=== PATIENT | female | born 1960 | race Caucasian/White ===

== ENCOUNTER → 2020-04-04 16:49 | Outpatient (BNVA) | payer OTHER, SELFPAY | PROVIDERS: Visit Provider Nurse Practitioner Family | DX: M79.604 Pain in right leg (principal) | CPT/HCPCS: 73590 ==

== ENCOUNTER → 2020-08-01 09:18 | Outpatient (BNVA) | payer OTHER, SELFPAY | PROVIDERS: Visit Provider Nurse Practitioner Family | DX: E55.9 Vitamin D deficiency, unspecified (principal); I10 Essential (primary) hypertension; Z13.6 Encounter for screening for cardiovascular disorders; Z79.899 Other long term (current) drug therapy | CPT/HCPCS: 80053; 80061; 81003; 82306; 83036; 84443; 85025 ==

== ENCOUNTER → 2020-08-15 09:33 | Outpatient (BNVA) | payer OTHER, SELFPAY | PROVIDERS: Family Provider Nurse Practitioner Family; Visit Provider Nurse Practitioner Family | DX: R31.9 Hematuria, unspecified (principal) | CPT/HCPCS: 81003 ==

== ENCOUNTER → 2021-10-24 16:55 | Outpatient (BNVA) | payer OTHER, SELFPAY | PROVIDERS: Family Provider Nurse Practitioner Family; PCP Nurse Practitioner Family; Visit Provider Nurse Practitioner Family | DX: M25.511 Pain in right shoulder (principal); M19.011 Primary osteoarthritis, right shoulder; R10.9 Unspecified abdominal pain; I10 Essential (primary) hypertension; Z13.6 Encounter for screening for cardiovascular disorders; E55.9 Vitamin D deficiency, unspecified | CPT/HCPCS: 73030; 74018; 80053; 80061; 81003; 82306; 83036; 84443; 85025 ==

== ENCOUNTER → 2022-01-15 10:50 | Outpatient (BNVA) | payer OTHER, SELFPAY | PROVIDERS: Family Provider Nurse Practitioner Family; PCP Nurse Practitioner Family; Visit Provider Nurse Practitioner Family | DX: R39.9 Unspecified symptoms and signs involving the genitourinary system (principal) | CPT/HCPCS: 81003 ==

== ENCOUNTER → 2022-07-30 09:25 | Outpatient (BNVA) | payer OTHER, SELFPAY | PROVIDERS: Family Provider Nurse Practitioner Family; PCP Nurse Practitioner; Visit Provider Nurse Practitioner | DX: I10 Essential (primary) hypertension (principal); Z79.899 Other long term (current) drug therapy; Z13.6 Encounter for screening for cardiovascular disorders | CPT/HCPCS: 80053; 80061; 83036; 84443; 85025 ==

== ENCOUNTER → 2022-09-18 15:42 | Outpatient (BNVA) | payer OTHER, SELFPAY | PROVIDERS: Family Provider Nurse Practitioner Family; PCP Nurse Practitioner; Visit Provider Nurse Practitioner | DX: E03.9 Hypothyroidism, unspecified (principal) | CPT/HCPCS: 84443 ==

== ENCOUNTER 2022-11-18 13:51 | Outpatient (CLI) | payer OTHER, SELFPAY | END 2022-11-18 13:52 | disposition home or self-care (01) | PROVIDERS: PCP Nurse Practitioner; Visit Provider Nurse Practitioner | DX: R05.3 Chronic cough (principal) | CPT/HCPCS: 94060; 94726; 94729; J7613 ==

== ENCOUNTER → 2023-01-29 15:10 | Outpatient (BNVA) | payer OTHER, SELFPAY | PROVIDERS: PCP Nurse Practitioner; Visit Provider Nurse Practitioner | DX: R30.0 Dysuria (principal); M19.90 Unspecified osteoarthritis, unspecified site; N39.0 Urinary tract infection, site not specified | CPT/HCPCS: 81000 ==

== ENCOUNTER → 2023-06-08 15:53 | Outpatient (BNVA) | payer OTHER, SELFPAY | PROVIDERS: PCP Nurse Practitioner; Visit Provider Nurse Practitioner | DX: R30.0 Dysuria (principal); N39.0 Urinary tract infection, site not specified | CPT/HCPCS: 81000; 87077; 87086; 87184 ==

== ENCOUNTER → 2024-04-07 15:43 | Outpatient (BNVA) | payer OTHER, SELFPAY | PROVIDERS: PCP Nurse Practitioner; Visit Provider Nurse Practitioner Family | DX: M16.11 Unilateral primary osteoarthritis, right hip | CPT/HCPCS: 73502 ==

== ENCOUNTER 2024-05-11 15:14 | Outpatient (CLI) | payer OTHER, SELFPAY ==
--- NOTE | 2024-05-11 14:20 | MM_ITS ---
WS: [id number] BILATERAL 3D TOMOSYNTHESIS DIGITAL SCREENING MAMMOGRAPHY WITH CAD CLINICAL INFORMATION: Z12.31 - Encounter for screening mammogram for malignant ... HISTORY: Screening mammogram. No current complaints. COMPARISON: New baseline TECHNIQUE: Bilateral CC and MLO views. FINDINGS: Scattered fibroglandular densities bilaterally. No suspicious focal mass, asymmetry, calcifications, or architectural distortion. No evidence of malignancy. Incidental punctate calcifications. MM/[place] [id number] IMPRESSION: BI-RADS: 2-Benign FOLLOW UP: 1 Year Follow-up Recommend return to annual screening mammography.
== END 2024-05-11 15:15 | disposition home or self-care (01) ==
LOC: MOBLMAM 15:20
PROVIDERS: PCP Nurse Practitioner Family; Visit Provider Nurse Practitioner Family
DX: Z12.31 Encounter for screening mammogram for malignant neoplasm of breast (principal); R92.323 Mammographic fibroglandular density, bilateral breasts; R92.1 Mammographic calcification found on diagnostic imaging of breast
CPT/HCPCS: 77063; 77067

== ENCOUNTER 2025-01-16 08:42 | Observation (INO) | payer OTHER, SELFPAY ==
[2025-01-16] VITALS (12 sets, daily range): BP systolic 108–146; BP diastolic 65–116; PULSE 52–112; RESP 18–20; TEMP 37.3–37.5; O2SAT 89–93; BMI 36.6; BMI 38.0
--- NOTE | 2025-01-16 08:47 | ECG_ITS ---
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
--- NOTE | 2025-01-16 09:02 | XRR_ITS ---
PROCEDURE INFORMATION: Exam: XR Chest Exam date and time: 01/16/2025 9:15 AM Age: 64 years old Clinical indication: Cough and shortness of breath; Feeling sob/cough x2 months; Additional info: Dyspnea/cough TECHNIQUE: Imaging protocol: Radiologic exam of the chest. Views: 1 view. COMPARISON: CR XR KUB [id number] 10/24/2021 5:05 PM FINDINGS: Lungs: Mild interstitial prominence. Pleural spaces: Unremarkable. No pleural effusion. No pneumothorax. Heart/Mediastinum: Unremarkable. No cardiomegaly. Vasculature: Moderate uncoiling of the thoracic aorta. Bones/joints: Unremarkable. XR/XR chest 1V portable [id number] IMPRESSION: Mild interstitial prominence.
[2025-01-16 09:10] LABS: Basophils % 0.3 %; Hematocrit 48.6 % (36-47); Lymphocytes # 0.9 10^3/uL (0.8-4.8); Lymphocytes % 8.4 %; Mean Corpuscular HGB Conc 32.1 g/dL (30-55); Mean Corpuscular Hemoglobin 29.1 pg (27-33); Mean Corpuscular Volume 90.5 fl (85-98); Mean Platelet Volume 10.3 fL (7.4-10.4); Monocytes # 1.5 10^3/uL (0.2-0.9); Monocytes % 13.7 %; Neutrophils # 8.59 10^3/uL (1.8-7.7); Neutrophils % 77.1 %; Nucleated Red Blood Cells % 0 %; Platelet Count 228 10^3/cmm (157-399); Red Blood Count 5.37 10^6/uL (3.85-5.65); White Blood Count 11.15 10^3/uL (3.29-11.43)
[2025-01-16 09:14] LABS: ABG PCO2 31.8 mmHg (35-45); ABG PH Result 7.48 (7.35-7.45); Alveolar-Arterial Oxygen Gradi 6.1 mmHg (5-10); Arterial Blood Gas Hematocrit 47.8 % (37-47); Blood Gas Allen Test Pos; Blood Gas Operator Identificat CAK; Blood Gas Sample Site Radial, left; Blood Gas Sample Type Arterial; Carboxyhemoglobin 1.5 %THgb (0.4-20.1); HCO3 ABG 23.6 mmol/L (22-26); HGB O2 Sat 92.3 % (95-100); Ionized Calcium Level - ABG 1.1 mmol/L (1.1-1.4); Oxygen Device ROOM AIR; Oxygen Saturation ABG 94.7; PO2 ABG 62.4 mmHg (80.0-100.0); PO2 FiO2 Ratio Arterial Blood 297; Potassium Level - ABG 3.6 mmol/L (3.5-5.0); Total Hemoglobin 15.6 g/dL (12-16)
[2025-01-16] MEDS: ipratropium-albuterol 3 mL Neb INHALATION (09:31)
[2025-01-16 09:33] LABS: Alanine Aminotransferase 18 U/L (0-33); Albumin Level 4.3 g/dL (3.5-5.2); Alkaline Phosphatase 75 U/L (35-105); Aspartate Amino Transferase 23 U/L (0-32); Blood Urea Nitrogen 17 mg/dL (8-23); Calcium 8.9 mg/dL (8.5-10.5); Carbon Dioxide 23 mmol/L (22-29); Chloride 96 mmol/L (98-107); Creatinine Clr Calc Pharmacy 67.0127; Globulin 2.8 g/dL (1.3-4.6); Glomerular Filtration Rate 63.2 mL/min (90-130); Glucose 122 mg/dL (65-115); Osmolality Calculated 279 mOsm/kg (285-295); Sodium 133 mmol/L (136-145); Total Bilirubin 0.3 mg/dL (0.15-1.2); Total Protein 7.1 g/dL (6.6-8.7)
[2025-01-16 09:36] LABS: Troponin(5th) Baseline 11 ng/L (0-10)
--- NOTE | 2025-01-16 09:45 | ED_ITS ---
HPI - SOB/Dyspnea 2 General: Chief Complaint: Shortness of Breath/Dyspnea Stated Complaint: cough,sob,weak Time Seen by Provider: 01/16/25 08:47 History of Present Illness: HPI Narrative: 64-year-old female presents emergency ro om complaining of feeling short of breath with a cough for the last 2 months. Patient had nonproductive cough and occasionally she will have some chest pain she usually associates it with cough. She had been seen by her doctor 2 weeks ago treated with steroids and antibiotics despite this she continues to have symptoms. Patient has a history of COPD as well as hypertension. She is not known to be diabetic. She does smoke states she has not smoked in the last 2 days. She has no known history of coronary artery disease. Associated symptoms: Reports chest pain (Associated with cough and deep breath); Deny abdominal pain or fever(s) Related Data Home Medications ?Medication ?Instructions ?Recorded ?Confirmed aspirin 81 mg tablet,delayed 81 mg PO BID 09/08/2409/02 release acetaminophen 325 mg tablet 650 mg PO QID PRN Fever Or Pain 01/16/25 01/16/25 (Tylenol) Previous Rx's ?Medication ?Instructions ?Recorded amlodipine 5 mg tablet See Rx Instructions .Route 0 12/05/24 .COMPLEX #30 tabs lisinopril 20 mg tablet See Rx Instructions .Route 0 12/05/24 .COMPLEX #30 tabs fluoxetine 20 mg capsule See Rx Instructions .Route 0 12/20/24 .COMPLEX #30 caps budesonide-formoterol HFA 160 2 inh inhalation BID 30 days #10.2 01/05/25 mcg-4.5 mcg/actuation aerosol grams inhaler (Symbicort) doxycycline hyclate 100 mg tablet 100 mg PO BID 10 day s #20 tabs 01/05/25 celecoxib 200 mg capsule See Rx Instructions .Route 0 01/13/25 .COMPLEX #60 caps albuterol sulfate 90 mcg/actuation 2 inh inhalation Q4 H PRN shortness 01/16/25 aerosol inhaler of breath or wheezing #18 gr ams oseltamivir 75 mg capsule (Tamiflu) 75 mg PO BID 5 day s #10 caps 01/16/25 Allergies Allergy/AdvReac Type Severity Reaction Status Date / Time hydroxyzine AdvReac ADR-Muscle Verified 01/05/25 16:07 Pain Review of Systems 2 Const: Denies: fever(s) or chills Card: Reports: chest pain (Associated with cough and deep breath) Resp: Denies: dyspnea GI: Denies: abdominal pain : Denies: dysuria, urinary frequency or urinary urgency Musc: Denies: neck pain or back pain Skin/Breast: Denies: rash PFSH ED 2 PFSH: Medical History (Updated 01/16/25 @ 12:48 by Corina Holcomb MD) History of PFTs 12/01 nonspecific restriction, no significant bronchdilator response, nl lung volumes and nl diffusion capacity History of Holter monitoring 06/2024 Supraventricular ectopy COPD (chronic obstructive pulmonary disease) Degenerative joint disease of right hip Palpitations Anxiety Upper respiratory infection Insomnia Arthritis Vitamin D deficiency Bronchitis after surgery Tobacco dependence Essential hypertension Social History Smoking and tobacco/nicotine status: current every day tobacco/nicotine user Quit status (tobacco/nicotine): has tried quititng Second hand smoke exposure: No Alcohol intake: never Current occupation: works fulltime at local [email or web address] Physical Exam 2 Const: GENERAL APPEARANCE: cooperative; not comfortable ORIENTATION/CONSCIOUSNESS: Yes awake, Yes oriented to person, Yes oriented to place and Yes oriented to time HENMT: COMMON NORMALS: normocephalic, atraumatic and hearing grossly normal bilaterally HEAD & SCALP: normocephalic and atraumatic Resp: COMMON NORMALS: normal respiratory effort, No retractions, No use of accessory muscles and clear to auscultation bilaterally AUSCULTATION: clear to auscultation bilaterally Cardio: COMMON NORMALS: regular rate, regular rhythm and No murmurs present (Cardio) RATE: regular rate RHYTHM: regular rhythm GI: COMMON NORMALS: Soft to palpation and No hepatosplenomegaly present A USCULTATION: Yes normoactive bowel sounds PALPATION: Yes Soft to palpation, No Tenderness to palpation present (GI), No Guarding due to palpation present (GI) and Yes No hepatosplenomegaly present Extremity: COMMON NORMALS: normal to inspection, capillary refill normal, no clubbing, cyanosis or edema, no calf tenderness and no pedal edema Neuro: SENSORIUM/ORIENTATION: Yes oriented to person, Yes oriented to place and Yes oriented to time Skin: COMMON NORMALS: no rashes or lesions noted GENERAL SKIN EXAM: no rashes or lesions noted Course 2 Vital Signs: Vital signs: Vital Signs Temperature 99.5 F 01/16/25 08:46 Pulse Rate 112 H 01/16/25 11:55 Respiratory Rate 20 H 01/16/25 11:55 Blood Pressure 130/87 01/16/25 11:55 Pulse Oximetry 89 L 01/16/25 11:55 Oxygen Delivery Me thod Room Air 01/16/25 11:55 MDM - SOB/Dyspnea Medical Decision Making While waiting on lab work to complete patient had a nonsustained run of V. tach was about 16-[address] Burkett is on-call for cardiology. He recommended trending tropes if they do not trend positive he feels she can be evaluated further as an outpatient with an outpatient 72-hour Holter monitor Lexiscan sestamibi stress test and follow-up with cardiology. Second Trope came back negative we are about to discharge the patient but went to evaluate her oxygen sats were dipping to 86 to 88% while she was awake. She has received nebulizers. She has not had any further chest pain or palpitations we have not noted any further arrhythmias. Will place on observation aggressive pulmonary toilet. Patient is having exacerbation of COPD with hypoxia largely secondary to her influenza A. Continue to monitor heart rhythm. Workup for the nonsustained V. tach can be deferred to outpatient per cardiology Medical Records I reviewed the patient's medical records. Lab Data I reviewed the patient's lab results. 01/16/25 09:00 01/16/25 09:00 Labs/Radiology: Radiology Impressions Chest X-Ray 01/16/25 09:02 IMPRESSION: Mild interstitial prominence. Laboratory Results WBC 11.15 10^3/uL (3.29-11.43) 01/16/25 09:00 RBC 5.37 10^6/uL (3.85-5.65) 01/16/25 09:00 Hgb 15.60 g/dL (11.27-16.99) 01/16/25 09:00 Hct 48.6 % (36-47) H 01/16/25 09:00 MCV 90.5 fl (85-98) 01/16/25 09:00 MCH 29.1 pg (27-33) 01/16/25 09:00 MCHC 32.1 g/dL (30-55) 01/16/25 09:00 RDW 15.0 % (12.1-15.1) 01/16/25 09:00 Plt Count 228 10^3/cmm (157-399) 01/16/25 09:00 MPV 10.3 fL (7.4-10.4) 01/16/25 09:00 Neut % (Auto) 77.1 % 01/16/25 09:00 Lymph % (Auto) 8.4 % 01/16/25 09:00 [place] % (Auto) 13.7 % 01/16/25 09:00 Eos % (Auto) 0.0 % 01/16/25 09:00 Baso % (Auto) 0.3 % 01/16/25 09:00 Neut # (Auto) 8.59 10^3/uL (1.8-7.7) H 01/16/25 09:00 Lymph # (Auto) 0.9 10^3/uL (0.8-4.8) 01/16/25 09:00 [place] # (Auto) 1.5 10^3/uL (0.2-0.9) H 01/16/25 09:00 Eos # (Auto) 0.0 10^3/uL (0.0-0.8) 01/16/25 09:00 Baso # (Auto) 0.0 10^3/uL (0.0-0.1) 01/16/25 09:00 Nucleated RBC % (auto) 0 % 01/16/25 09:00 Nucleated RBCs # 0.0 /100WBC 01/16/25 09:00 Specimen Type Arterial 01/16/25 09:02 Sample Site Radial, left 01/16/25 09:02 ABG pH 7.48 (7.35-7.45) H 01/16/25 09:02 ABG pCO2 31.8 mmHg (35-45) L 01/16/25 09:02 ABG pO2 62.4 mmHg (80.0-100.0) L 01/16/25 09:02 ABG PO2/FiO2 Ratio 297 01/16/25 09:02 ABG HCO3 23.6 mmol/L (22-26) 01/16/25 09:02 ABG O2 Saturation 94.7 01/16/25 09:02 ABG Base Excess 1.0 mmol/L (-2.0-2.0) 01/16/25 09:02 Giacomo Test Pos 01/16/25 09:02 A-a O2 Gradient 6.1 mmHg (5-10) 01/16/25 09:02 Hematocrit 47.8 % (37-47) H 01/16/25 09:02 Hgb O2 Saturation 92.3 % (95-100) L 01/16/25 09:02 Carboxyhemoglobin 1.5 %THgb (0.4-20.1) 01/16/25 09:02 Methemoglobin 1.0 % (0.4-1.5) 01/16/25 09:02 Total Hemoglobin 15.6 g/dL (12-16) 01/16/25 09:02 Sodium 136.0 mmol/L (131-143) 01/16/25 09:02 Potassium 3.6 mmol/L (3.5-5.0) 01/16/25 09:02 Glucose 101.0 mg/dL (70-115) 01/16/25 09:02 Ionized Calcium 1.1 mmol/L (1.1-1.4) 01/16/25 09:02 O2 Delivery Device Room air 01/16/25 09:02 FiO2 21.0 % 01/16/25 09:02 Director Of Marketing [employer] ID [email or web address] 01/16/25 09:02 Sodium 133 mmol/L (136-145) L 01/16/25 09:00 Potassium 4.0 mmol/L (3.5-5.1) 01/16/25 09:00 Chloride 96 mmol/L (98-107) L 01/16/25 09:00 Carbon Dioxide 23 mmol/L (22-29) 01/16/25 09:00 Anion Gap 18.0 (5-19) 01/16/25 09:00 BUN 17 mg/dL (8-23) 01/16/25 09:00 Creatinine 0.9 mg/dL (0.5-0.9) 01/16/25 09:00 GFR Calculation 63.2 mL/min (90-130) L 01/16/25 09:00 Glucose 122 mg/dL (65-115) H 01/16/25 09:00 Calculated Osmolality 279 mOsm/kg (285-295) L 01/16/25 09:00 Calcium 8.9 mg/dL (8.5-10.5) 01/16/25 09:00 Total Bilirubin 0.3 mg/dL (0.15-1.2) 01/16/25 09:00 AST 23 U/L (0-32) 01/16/25 09:00 ALT 18 U/L (0-33) 01/16/25 09:00 Alkaline Phosphatase 75 U/L (35-105) 01/16/25 09:00 Troponin T Baseline 11 ng/L (0-10) H 01/16/25 09:00 Troponin T 120 Minute 9.51 ng/L (0-10) 01/16/25 10:56 Delta Troponin T -1.49 ABS# (0-10) L 01/16/25 10:56 NT-Pro-B Natriuret Pep 370 pg/mL (0-125) H 01/16/25 09:00 Total Protein 7.1 g/dL (6.6-8.7) 01/16/25 09:00 Albumin 4.3 g/dL (3.5-5.2) 01/16/25 09:00 Globulin 2.8 g/dL (1.3-4.6) 01/16/25 09:00 Influenza A (PCR) Positive (Negative) 01/16/25 09:00 Influenza Type B (PCR) Negative (Negative) 01/16/25 09:00 RSV (PCR) Negative (Negative) 01/16/25 09:00 SARS-CoV-2 (PCR) Negative (Negative) 01/16/25 09:00 All radiology interpretation(s) finalized by discharge Discharge Plan Discharge Patient Disposition: Placed in Observation Clinical Impression: Influenza A, Arrhythmia Condition: Stable Prescriptions: New albuterol sulfate 90 mcg/actuation HFA aerosol inhaler 2 inh INHALATION Q4H PRN (Reason: shortness of breath or wheezing) Qty: 18 0RF oseltamivir [Tamiflu] 75 mg capsule 75 mg PO BID 5 Days Qty: 10 0RF No Action aspirin 81 mg tablet,delayed release (DR/EC) 81 mg PO BID budesonide-formoterol [Symbicort] 160-4.5 mcg/actuation HFA aerosol inhaler 2 inh inhalation BID 30 Days Qty: 10.2 0RF doxycycline hyclate 100 mg tablet 100 mg PO BID 10 Days Qty: 20 0RF lisinopril 20 mg tablet See Rx Instructions .ROUTE .COMPLEX Qty: 30 5RF Dose Instruction: Take 1 tablet by mouth once daily Rx Instructions: Take 1 tablet by mouth once daily amlodipine 5 mg tablet See Rx Instructions .ROUTE .COMPLEX Qty: 30 5RF Dose Instruction: Take 1 tablet by mouth once daily Rx Instructions: Take 1 tablet by mouth once daily fluoxetine 20 mg capsule See Rx Instructions .ROUTE .COMPLEX Qty: 30 2RF Dose Instruction: Take 1 capsule by mouth once daily Rx Instructions: Take 1 capsule by mouth once daily celecoxib 200 mg capsule See Rx Instructions .ROUTE .COMPLEX Qty: 60 0RF Dose Instruction: TAKE 1 CAPSULE BY MOUTH TWICE DAILY NEEDED FOR PAIN Rx Instructions: TAKE 1 CAPSULE BY MOUTH TWICE DAILY NEEDED FOR PAIN acetaminophen [Tylenol] 325 mg Tablet 650 mg PO QID PRN (Reason: Fever Or Pain) Discharge Orders: Discharge ED (Routine); Ordered 01/16/25 Ordered By: Rao Ruth Referrals: REMY Mckinnon, EARLY INTERVENTIONIST [Primary Care Provider] - Discharge Diet: Usual diet Discharge Activity: Resume usual activity Patient Instructions: Opioid Safety, Pain Management Activity Restrictions/Additional Instructions: Thank you for choosing [facility] for your healthcare needs today. It is very important that you follow up as instructed or that you return to the Emergency Department should you have concerns or if your condition changes or worsens in any way. You were seen for cough cold flu symptoms you did test positive for influenza A. You were also noted to have an irregular rhythm. We reviewed with the recreation attendant he recommends a outpatient stress test and 72-hour Holter monitor and follow-up in their office. Print Language: Lithuanian Coding Level of Care Code ED Abatement Worker for Tyree Luis
[2025-01-16 09:47] LABS: Influenza A POSITIVE (Negative); Influenza B NEGATIVE (Negative); Respiratory Syncytial Virus Ce NEGATIVE (Negative); SARS-CoV-2 PCR NEGATIVE (Negative)
[2025-01-16 11:10] LABS: NT Pro B Type Natriuretic Pept 370 pg/mL (0-125)
--- NOTE | 2025-01-16 11:10 | ECG_ITS ---
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
[2025-01-16 11:18] LABS: Troponin 5 2HR 9.51 ng/L (0-10)
[2025-01-16 11:19] LABS: Troponin 5 2HR Delta -1.49 ABS# (0-10)
--- NOTE | 2025-01-16 12:31 | P.HP_ITS ---
Providers/Chief Complaint 2 Admitting Physician: Corina Holcomb MD Primary Care Provider: ANDREW Higgins Chief Complaint: cough,sob,weak History of Present Illness Deedee Ralph is a 64 year old female who presented to the ER with shortness of breath and dyspnea associated with a cough and weakness. The cough has persisted for several months. The patient was seen by their primary care provider on January 05 and was prescribed a five-day course of 40 mg prednisone and a 10- day course of doxycycline, with no clinical improvement noted. Upon arrival at the ER today, the patient had a temperature of 99.5?F, pulse of 95, respiratory rate of 18, and oxygen saturation of 92% on room air. Initial BP was 146/116. A chest X-ray showed mild interstitial prominence. The patient received continuous nebulizer treatment, which led to tachycardia and a run of non-sustained V-tach captured on telemetry monitoring, though the patient was asymptomatic during this. The patient was found to be influenza A-positive. Despite plans to discharge with Tamiflu, the patient was found to have hypoxemia on room air with saturations of 89%. The patient has COPD and continues to smoke, though not much in the last few days. A Holter monitor from June of the previous year showed supraventricular ectopy. PFTs in 2022 showed a nonspecific restriction pattern with no significant bronchodilator response, normal lung volumes, and normal diffusion capacity. The patient reports that the medications, including antibiotics and steroids, did not really improve symptoms. THat said, she did feel good enough last thursday to go to [facility] with her fiance. She started feeling sick on Thursday with subjective fevers and worsening respiratory symptoms, weakness, aches and pains. The patient also reports diarrhea and incontinence with coughing and difficulty getting up any phleghm. The patient has not smoked in the last couple of days due to breathing difficulties. She has also not gone to work. Been in bed. She has abdominal pain with coughing and today has had dusky lips, which are not normal for her. The patient denies runny nose or sore throat. No swelling noted. Lays in left lateral position due to right hip pain which is chronic. Mrs Ralph reports using an inhaler, but indicates is does not seem to work much. She uses nasal strips and an intra- nares device at night for breathinig. The patient denies diabetes, heart attack, stroke, or kidney problems in the past. No known heart failure. The patient has a headache and reports feeling miserable presently. GIven the new need for oxygen therapy, she is being admitted for further care to observation status. Review of Systems 2 General: Reports: Other (ROS as per HPI or as otherwise noted here) Const: Reports: fever(s) (subjective x 2 days), chills, body aches, change in appetite (decreased and limited intake last 24-28 hrs), fatigue, malaise, daytime sleepiness and snoring ENMT: Denies: throat pain or nasal congestion Card: Reports: palpitations, irregular heart rhythm, lightheadedness, dyspnea on exertion and orthopnea; Denies: chest pain, edema or syncope Resp: Reports: dyspnea, productive cough, non-productive cough and chest congestion (difficult to get up); Denies: hemoptysis GI: Reports: diarrhea and fecal incontinence (with coughing spells); Denies: constipation or hematochezia : Reports: urinary incontinence (with coughing); Denies: hematuria Musc: Reports: extremity pain (right hip chronic, better with celebrex) and muscle weakness Skin/Breast: Denies: rash or sores Neuro: Reports: other (generalized rather than focal weakness); Denies: frequent falls or confusion Darryl/Lymph: Denies: easy bruising or easy bleeding Medications/Allergies Home Medications ?Medication ?Instructions ?Recorded ?Confirmed ?Last Taken ?Type aspirin 81 mg tablet,delayed 81 mg PO BID 09/08/2409/0201/14/25 History release amlodipine 5 mg tablet See Rx Instructions .Route 0 12/05/24 01/16/25 01/14/25 Rx .COMPLEX #30 tabs lisinopril 20 mg tablet See Rx Instructions .Route 0 12/05/24 01/16/25 01/14/25 Rx .COMPLEX #30 tabs fluoxetine 20 mg capsule See Rx Instructions .Route 0 12/20/24 01/16/25 11/28/24 Rx .COMPLEX #30 caps budesonide-formoterol HFA 160 2 inh inhalation BID 30 days #10.2 01/05/25 01/16/25 01/14/25 Rx mcg-4.5 mcg/actuation aerosol grams inhaler (Symbicort) doxycycline hyclate 100 mg tablet 100 mg PO BID 10 day s #20 tabs 01/05/25 01/16/25 01/14/25 Rx celecoxib 200 mg capsule See Rx Instructions .Route 0 01/13/25 01/16/25 01/14/25 Rx .COMPLEX #60 caps acetaminophen 325 mg tablet 650 mg PO QID PRN Fever Or Pain 01/16/25 01/16/25 01/15/25 20:00 History (Tylenol) albuterol sulfate 90 mcg/actuation 2 inh inhalation Q4 H PRN shortness 01/16/25 Unknown Rx aerosol inhaler of breath or wheezing #18 gr ams oseltamivir 75 mg capsule (Tamiflu) 75 mg PO BID 5 day s #10 caps 01/16/25 Unknown Rx Allergies Allergy/AdvReac Type Severity Reaction Status Date / Time hydroxyzine AdvReac ADR-Muscle Verified 01/05/25 16:07 Pain Additional Medication Information Tamiflu was in the ER prescription that has not yet been filled PFSH Acute 2 PFSH: Medical History (Updated 01/16/25 @ 16:16 by Corina Holcomb MD) Depression History of PFTs 12/01 nonspecific restriction, no significant bronchdilator response, nl lung volumes and nl diffusion capacity History of Holter monitoring 06/2024 Supraventricular ectopy COPD (chronic obstructive pulmonary disease) Degenerative joint disease of right hip Palpitations supraventricular ectopy noted on holter monitor 07/02 Anxiety Insomnia Arthritis Vitamin D deficiency Bronchitis after surgery Tobacco dependence Essential hypertension Surgical History (Updated 01/16/25 @ 14:30 by Corina Holcomb MD) History of total abdominal hysterectomy and bilateral salpingo-oophorectomy Family History (Updated 01/16/25 @ 16:57 by Corina Holcomb MD) Denies family history of CAD (coronary artery disease) Social History (Updated 01/16/25 @ 16:56 by Corina Holcomb MD) Smoking and tobacco/nicotine status: current every day tobacco/nicotine user Quit status (tobacco/nicotine): has tried quititng Second hand smoke exposure: No Alcohol intake: never Substance/Drug Use: never Additional social history: Engaged Current occupation: works fulltime at local [employer] Vitals/I&O/Wt Last Vital Signs Temp 99.5 F 01/16/25 08:46 Pulse 112 H 01/16/25 11:55 Resp 20 H 01/16/25 11:55 BP 130/87 01/16/25 11:55 Pulse Ox 89 L 01/16/25 11:55 O2 Del Method Room Air 01/16/25 11:55 Weight last 48 hrs Weight 90.718 kg Physical Exam 2 Narrative: Patient is asleep upon arrival but easily awakens. Able to provide history. Normocephalic. Extraocular movements are intact. Conjunctiva are pink. No photophobia. Nasopharynx with device in place to keep nares open along with oxygen by nasal cannula dry nasal mucosa. Oral mucosa also dry. Neck is supple. Lungs are remarkable for some inspiratory expiratory wheezes throughout. No rhonchi are noted. Pursed lip breathing noted with movement as well as retractions but both improve with rest in left lateral position. Cardiovascular exam reveals a tachycardic but regular rhythm. 2+ radial and 1+ dorsalis pedis pulses bilaterally. Abdomen is soft, positive bowel sounds. No pitting edema in pretibial region bilaterally. Left lower extremity is significantly tender to palpation along the anterior dominguez. No significant calf tenderness. Right lower extremity tender to a lesser degree along the anterior dominguez. Moves all extremities but currently preferring to lie on left side. Data 01/16/25 09:00 01/16/25 09:00 Other Labs: Radiology Impressions Chest X-Ray 01/16/25 09:02 IMPRESSION: Mild interstitial prominence. Laboratory Results WBC 11.15 10^3/uL (3.29-11.43) 01/16/25 09:00 RBC 5.37 10^6/uL (3.85-5.65) 01/16/25 09:00 Hgb 15.60 g/dL (11.27-16.99) 01/16/25 09:00 Hct 48.6 % (36-47) H 01/16/25 09:00 MCV 90.5 fl (85-98) 01/16/25 09:00 MCH 29.1 pg (27-33) 01/16/25 09:00 MCHC 32.1 g/dL (30-55) 01/16/25 09:00 RDW 15.0 % (12.1-15.1) 01/16/25 09:00 Plt Count 228 10^3/cmm (157-399) 01/16/25 09:00 MPV 10.3 fL (7.4-10.4) 01/16/25 09:00 Neut % (Auto) 77.1 % 01/16/25 09:00 Lymph % (Auto) 8.4 % 01/16/25 09:00 [place] % (Auto) 13.7 % 01/16/25 09:00 Eos % (Auto) 0.0 % 01/16/25 09:00 Baso % (Auto) 0.3 % 01/16/25 09:00 Neut # (Auto) 8.59 10^3/uL (1.8-7.7) H 01/16/25 09:00 Lymph # (Auto) 0.9 10^3/uL (0.8-4.8) 01/16/25 09:00 [place] # (Auto) 1.5 10^3/uL (0.2-0.9) H 01/16/25 09:00 Eos # (Auto) 0.0 10^3/uL (0.0-0.8) 01/16/25 09:00 Baso # (Auto) 0.0 10^3/uL (0.0-0.1) 01/16/25 09:00 Nucleated RBC % (auto) 0 % 01/16/25 09:00 Nucleated RBCs # 0.0 /100WBC 01/16/25 09:00 Specimen Type Arterial 01/16/25 09:02 Sample Site Radial, left 01/16/25 09:02 ABG pH 7.48 (7.35-7.45) H 01/16/25 09:02 ABG pCO2 31.8 mmHg (35-45) L 01/16/25 09:02 ABG pO2 62.4 mmHg (80.0-100.0) L 01/16/25 09:02 ABG PO2/FiO2 Ratio 297 01/16/25 09:02 ABG HCO3 23.6 mmol/L (22-26) 01/16/25 09:02 ABG O2 Saturation 94.7 01/16/25 09:02 ABG Base Excess 1.0 mmol/L (-2.0-2.0) 01/16/25 09:02 Giacomo Test Pos 01/16/25 09:02 A-a O2 Gradient 6.1 mmHg (5-10) 01/16/25 09:02 Hematocrit 47.8 % (37-47) H 01/16/25 09:02 Hgb O2 Saturation 92.3 % (95-100) L 01/16/25 09:02 Carboxyhemoglobin 1.5 %THgb (0.4-20.1) 01/16/25 09:02 Methemoglobin 1.0 % (0.4-1.5) 01/16/25 09:02 Total Hemoglobin 15.6 g/dL (12-16) 01/16/25 09:02 Sodium 136.0 mmol/L (131-143) 01/16/25 09:02 Potassium 3.6 mmol/L (3.5-5.0) 01/16/25 09:02 Glucose 101.0 mg/dL (70-115) 01/16/25 09:02 Ionized Calcium 1.1 mmol/L (1.1-1.4) 01/16/25 09:02 O2 Delivery Device Room air 01/16/25 09:02 FiO2 21.0 % 01/16/25 09:02 End Finder Twisting Department ID Cak 01/16/25 09:02 Sodium 133 mmol/L (136-145) L 01/16/25 09:00 Potassium 4.0 mmol/L (3.5-5.1) 01/16/25 09:00 Chloride 96 mmol/L (98-107) L 01/16/25 09:00 Carbon Dioxide 23 mmol/L (22-29) 01/16/25 09:00 Anion Gap 18.0 (5-19) 01/16/25 09:00 BUN 17 mg/dL (8-23) 01/16/25 09:00 Creatinine 0.9 mg/dL (0.5-0.9) 01/16/25 09:00 GFR Calculation 63.2 mL/min (90-130) L 01/16/25 09:00 Glucose 122 mg/dL (65-115) H 01/16/25 09:00 Calculated Osmolality 279 mOsm/kg (285-295) L 01/16/25 09:00 Calcium 8.9 mg/dL (8.5-10.5) 01/16/25 09:00 Total Bilirubin 0.3 mg/dL (0.15-1.2) 01/16/25 09:00 AST 23 U/L (0-32) 01/16/25 09:00 ALT 18 U/L (0-33) 01/16/25 09:00 Alkaline Phosphatase 75 U/L (35-105) 01/16/25 09:00 Troponin T Baseline 11 ng/L (0-10) H 01/16/25 09:00 Troponin T 120 Minute 9.51 ng/L (0-10) 01/16/25 10:56 Delta Troponin T -1.49 ABS# (0-10) L 01/16/25 10:56 NT-Pro-B Natriuret Pep 370 pg/mL (0-125) H 01/16/25 09:00 Total Protein 7.1 g/dL (6.6-8.7) 01/16/25 09:00 Albumin 4.3 g/dL (3.5-5.2) 01/16/25 09:00 Globulin 2.8 g/dL (1.3-4.6) 01/16/25 09:00 Influenza A (PCR) Positive (Negative) 01/16/25 09:00 Influenza Type B (PCR) Negative (Negative) 01/16/25 09:00 RSV (PCR) Negative (Negative) 01/16/25 09:00 SARS-CoV-2 (PCR) Negative (Negative) 01/16/25 09:00 Other data: 06/2024 HOLTER x 14 days Holter monitor was for 14 days dated from 0 06/15/2024 to 06/29/2024 *The predominant rhythm was sinus with frequent supraventricular ectopy. *The Maximum Heart Rate recorded was 193 bpm, 06/22 15:10:19, the Minimum Heart Rate recorded was 34 bpm, 06/21 03:42:02, and the Average Heart Rate was 84 bpm. *There were 1,813 VE beats with a burden of <1 %. *There were 125,924 SVE beats with a burden of 9 %. There were 75 occurrences of Supraventricular Tachycardia with the Fastest episode 193 bpm, 06/22 15:10:16 , and the Longest episode 13 beats, 06/22 15:10:16. *There were 40 Patient Triggers All patient triggered events were consistent with sinus rhythm mostly to sinus tachycardia heart rate ranged from 74-105 beats per Electronically Signed On 08-28-2024 20:49:39 CDT by TERRI kumar [email or web address] Dictated By: Terri Pulliam MD Signed By: Terri Pulliam MD Signed Date/Time: 08/28/242050 DD/ 1604 A&P Assessment and plan (1) Hypoxemia requiring supplemental oxygen: Hypoxemia requiring supplemental oxygen is a new finding for this patient who is a known smoker with COPD/chronic bronchitis. Not currently meeting criteria for acute respiratory failure but at high risk for progression to such. She has had a degree of symptoms for a couple of months, initially a cough that would not go away. Has had difficulty with expectoration feeling like she needs to get something up. Is on piedad inhibitor but cough sounds productive rather than dry. Was seen by primary care provider end of December and given a course of steroids and doxycycline along with additional inhaler. Improved enough to feel like going to [email or web address] on Thursday but not as improved as she would have liked. Previous PFTs done in 2022 have shown limited bronchodilator response and also showed a nonspecific restrictive pattern rather than expected obstructive process. Review of previous oxygen saturations in EMR show normal values. I strongly suspect acute hypoxemia is secondary to influenza A which has been identified today on top of chronic bronchitis. Chest x-ray without evidence of pneumonia though certainly at risk for developing such. Cardiac etiology such as acute ischemia or myocarditis seem less likely based on clinically history though findings in ED a concern. Other pulmonary entities such as interstitial lung disease (restrictive pattern on PFTs but normal lung volumes) and PE (normal AA gradient) less of an acute concern at present but need to be kept in mind. Unsure at this point the role of BMI at 36 and potential undiagnosed and untreated sleep apnea may be playing into current clinical presentation at this time. ABG shows primary respiratory with metabolic compensation of a chronic process acutely worsened. No prior ABGs for comparison - Oxygen therapy, weaning to room air as tolerated - Monitor for need for non-invasive ventilation especially with sleep - Management for influenza A, supportive by nature - Management for COPD exacerbation, as noted below - Continue to trend cardiac enzymes, telemetry monitoring and other cardiac management as noted below (2) Arrhythmia: Noted to have nonsustained V. tach in the emergency room. Morphology from telemetry monitoring quite different from that which I was able to review in Holter monitor performed in June of 2024 when she was noted to have supraventricular ectopy. Looking a bit closer she did have a few episodes of ventricular ectopy with highest rate 193 and longest run of beats 13. Abnormality noted today was after receiving continuous nebulizer treatment which may be a contributing factor in addition to baseline respiratory status and degree of hypoxemia. Asymptomatic. Chronically does have intermittent palpitations which is what led to previous Holter monitoring. Baseline troponin just outside of normal range with downtrending to our troponin delta. Type II process secondary to demand ischemia from hypoxemia a consideration. - Telemetry monitoring - Check and replace electrolytes as needed - Check echocardiogram if HR below 100 - Continue to trend cardiac enzymes, check lipid panel, check TSH - May benefit from outpatient cardiovascular stress testing depending on clinical course given degree of symptoms over couple months without improvement with management for respiratory etiology of symptoms Qualifiers: Arrhythmia type: other ventricular tachycardia Qualified Code(s): I 47.29 - Other ventricular tachycardia (3) Influenza A: As noted on respiratory testing done today. Symptom onset just over 48 hours ago. Has had associated fever, headaches, body aches, general malaise along with worsening of respiratory symptoms and general weakness. Not vaccinated. - Tamiflu as in treatment window - Supportive care (4) COPD (chronic obstructive pulmonary disease): From review of available information appears to have chronic mucopurulent/simple bronchitis from long time tobacco use/smoking, currently with acute exacerbation related to influenza A. PFTs in 2022, however, showed unspecified restrictive pattern with no significant broncodilator response, normal lung volumes and normal diffusion capacity. Has not previously required oxygen as noted. - Prednisone 40 mg daily to resume - Levaquin orally - Continue long acting inhaler management - As need duonebs though given prior PFTs may not show improvement if study was reflective of current condition - Flutter device and incentive spirometry - Mucinex - Oxygen therapy as needed, may need for home use - Smoking cessation encouraged - Would benefit from repeat PFTs in the outpatient setting when clinically improved as well as consideration for high-resolution CT of the chest if remains suggestive of restrictive disease process. Could also consider high resolution CT of the chest sooner if clinically warranted. Annual CT lung screening should also be considered in consultation with PCP. Qualifiers: COPD type: COPD with acute exacerbation Qualified Code(s): J44.1 - Chronic obstructive pulmonary disease with (acute) exacerbation (5) Essential hypertension: Chronically on lisinopril and amlodipine. Blood pressures at presentation high but improved after settling. - Continue home amlodipine - Holding lisinopril currently due to renal function - Monitor blood pressure for need to adjust management - Consider diuretics depending on renal/volume status (6) Kidney disease, chronic, stage II (GFR 60-89 ml/min): By current GFR calculations. Not a known diagnosis. BUN/Cr higher than prior values. May be volume related rather than chronic disease as has not had much intake last 48 hours, including fluids. Did start celecoxib in November and is on lisinopril chronically. Has known hypertension as well. - Fluids overnight - Recheck renal function in am - Monitor volume status (7) Insomnia: Has not had sleep study but does snore and wears an [id number] device in her nares to keep them open with sleep. Undiagnosed/treated sleep apnea could be a contributing factor to longer term symptoms and potential for hypoxemia even when not acutely ill. - Monitor for indications of sleep apnea while here - Once back to baseline from acute illness, would benefit from outpatient sleep study, likely in lab given potential oxygen need, though that may clear with resolution of acute illness - Limit sleep aids given current respiratory status Qualifiers: Insomnia type: due to medical condition Qualified Code(s): G47.01 - Insomnia due to medical condition (8) Degenerative joint disease of right hip: Started on Celebrex for arthritis/right hip pain in 11/2024 and believes it is helping more than medications previously prescribed. She stopped fluoxetine for depression when this was started due to information she read about co- administration of medications. - Continue Celebrex arthritis pain but will decrease dose to 100 bid for max of 200 per day currently - Monitor for any signs of GI bleed/symptoms with steroids - Decreased aspirin dosing to once daily from bid Qualifiers: Osteoarthritis type: primary Qualified Code(s): M16.11 - Unilateral primary osteoarthritis, right hip (9) Depression: Previously on fluoxetine for depression but stopped taking it when celecoxib started for DJD of right hip/arthritis due to concerns about interactions. Off now for 6-8 weeks. - Currently feels like doing okay off of fluoxetine so will not resume - Recommend monitoring for need to pharmacologically address depression on ongoing basis in outpatient setting (10) Tobacco dependence: Typically smokes a pack per day, none last couple days due to illness - Nicotine patch if needed - Encouraged to maintain abstinence from nicotine/cigarettes - Reviewed that sometimes respiratory status worsens before it gets better but quitting now can help her breathing over the longer term (11) BMI 36.0-36.9,adult: Plan > BNP above normal range but no edema, no cxr findings of pulmonary edema; nevertheless has risk factors for heart failure including possible untreated sleep apnea, tobacco use, hypertension, COPD, possible CKD 2 - Check Echo, monitor for CHF signs and symptoms > Elevated blood sugar without a history of diabetes, recently on steroids which has been re-ordered here - Check A1c, recheck blood glucose in am > Weakness and malaise may be related to unrecognized hypoxemia in the home setting, worse with influenza A - Recommended home pulse oximeter in addition to monitoring in the hospital setting Observation admission currently Other care as noted above VTE prophylaxis: Lovenox GI Prophylaxis: PPI Antibiotics: has been on doxycycline outpatient since 01/05 or 01/06 Pending studies: 6 hr troponin, echo, a1c, tsh, lipid panel, am labs Telemetry: ordered due to episode of v tach noted in ED Romero: not currently indicated Line(s): peripheral IVs Disposition plan: Home with outpatient follow up to primary care provider anticipated. Would benefit from outpatient sleep study(in lab likely with current oxygen needs) & repeat PFTs one clinically improved from acute illness. Depending on results of telemetry monitoring, echo and serial cardiac enzymes, may also bnefit from lexiscan mibi in outpatient setting. Nay require home oxygen at discharge depending on clinical course. Code Status: Full Code Supportive care otherwise Findings, concerns and plans were discussed with patient and her fiance and they were given an opportunity to ask questions PDMP PDMP Reviewed: Last Reviewed 01/16/25 12:38 by Corina Holcomb MD Attestations 2 Medical Necessity Statement*: Currently anticipate a stay less than two midnights In this patient with known COPD who has not previously required oxygen. She is currently hypoxemic and on 2 L by nasal cannula in the setting of acute influenza A infection and COPD exacerbation. Management has been initiated and we will monitor response overnight and make further determination about ongoing hospital stay versus discharge home possibly with oxygen therapy among other management. In addition to hypoxemia she had a nonsustained run of V. tach bringing up potential concern for cardiac etiology despite the acute viral infectious process that is known.She has already been on outpatient management with oral steroids and oral antibiotic that have just completed as well. Diagnoses Hypoxemia requiring supplemental oxygen R09.02; Z99.81 Other ventricular tachycardia I47.29 Arrhythmia type: other ventricular tachycardia Influenza A J10.1 Chronic obstructive pulmonary disease with acute exacerbation J44.1 COPD type: COPD with acute exacerbation Essential hypertension I10 Kidney disease, chronic, stage II (GFR 60-89 ml/min) N18.2 Insomnia due to medical condition G47.01 Insomnia type: due to medical condition Primary osteoarthritis of right hip M16.11 Osteoarthritis type: primary Depression F32.A Tobacco dependence F17.200 BMI 36.0-36.9,adult Z68.36
[2025-01-16] MEDS: acetaminophen 325 mg Tablet 650 MG PO (12:49)
--- NOTE | 2025-01-16 14:47 | USCV_ITS ---
[facility], Deedee Age: 64 Gender: F : 1960 Exam Date: 01/16/2025 15:56 Ordering Phys: Corina Holcomb MD Technologist: Exam Location: [facility] – [place] Indication: vtach BP: 118 / 81 HR: 97 Rhythm: Sinus Technical Quality: Adequate MEASUREMENTS (Male / Female) Normal Values 2D ECHO LV Diastolic Diameter PLAX 3.9 cm 4.2 - 5.9 / 3.9 - 5.3 cm IVS Diastolic Thickness 1.2 cm 0.6 - 1.0 / 0.6 - 0.9 cm IVS Systolic Thickness 1.9 cm LVPW Diastolic Thickness 1.5 cm 0.6 - 1.0 / 0.6 - 0.9 cm LVPW Systolic Thickness 1.8 cm LVOT Diameter 2.1 cm LV Ejection Fraction 2D Teich 63.4 % LV Ejection Fraction MOD 4C 57.8 % LV Ejection Fraction MOD 2C 70.4 % LV Ejection Fraction 2C AL 72.8 % LA Diameter 4.4 cm RA Systolic Volume 4C AL 49.2 ml RA Systolic Volume 4C MOD 46.8 ml Aorta at Sinotubular Diameter 2.8 cm IVC Diameter 1.0 cm M-MODE LA Ao Ratio MM 1.4 AV Cusp Separation MM 2.5 cm DOPPLER AV Peak Velocity 139.0 cm/s LVOT Peak Velocity 108.0 cm/s AV Area Cont Eq vti 3.0 cm squared AV Area Cont Eq pk 2.6 cm squared MV Peak Velocity 133.0 cm/s MV Area PHT 4.8 cm squared Mitral E to A Ratio 0.6 TR Peak Velocity 168.0 cm/s TR Peak Gradient 11.3 mmHg TV Peak E Velocity 59.0 cm/s PV Peak Velocity 114.0 cm/s FINDINGS Left Ventricle Normal left ventricular size, systolic function and wall thickness, with no regional wall motion abnormalities. Left ventricular ejection fraction is estimated at 60 %. Grade I/IV diastolic dysfunction (abnormal relaxation filling pattern), normal to mildly elevated filling pressures. Right Ventricle The right ventricle is normal in size and function. Right Atrium The right atrium is normal in size. Left Atrium Moderately increased left atrial size. Mitral Valve Thickened mitral valve. No mitral valve stenosis. Trace mitral valve regurgitation. Aortic Valve Thickened aortic valve. No aortic valve stenosis. Mild aortic valve regurgitation. Tricuspid Valve Structurally normal tricuspid valve without significant stenosis or regurgitation. Pulmonary artery systolic pressure is normal. Pulmonic Valve Structurally normal pulmonic valve without significant stenosis. There is no pulmonic regurgitation. Pericardium Normal pericardium without effusion. Aorta Normal ascending aorta dimension. IVC The inferior vena cava appears normal. CONCLUSIONS Normal left ventricular size, systolic function and wall thickness, with no regional wall motion abnormalities. Left ventricular ejection fraction is estimated at 60 %. Grade I/IV diastolic dysfunction (abnormal relaxation filling pattern), normal to mildly elevated filling pressures. Moderately increased left atrial size. Thickened aortic valve. No aortic valve stenosis. Mild aortic valve regurgitation. There is no pericardial effusion. Right atrial pressure is around 5 mm of mercury. Gemma Pulliam MD (Electronically Signed) Final Date: 16 January 2025 22:11 S
--- NOTE | 2025-01-16 15:02 | ECG_ITS ---
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: : 1960 Requested By: Rao Rose Order Number: [id number] Reading MD: TERRI RANDOLPH Measurements Intervals [place] Rate: 98 P: 4 PA: 152 QRS: -14 QRSD: 91 T: -15 QT: 351 QTc: 449 Interpretive Statements SINUS RHYTHM WITH OCCASIONAL ECTOPIC PREMATURE COMPLEXES LEFT ATRIAL ENLARGEMENT [-0.15mV P-WAVE IN V1/V2] POSSIBLE LEFT VENTRICULAR HYPERTROPHY [VOLTAGE CRITERIA PLUS LAE OR QRS WIDENING] MINIMAL ST DEPRESSION [0.025+ mV ST DEPRESSION] Compared to ECG 01/16/2025 11:10:56 Atrial abnormality now present ST (T wave) deviation now present Sinus tachycardia no longer present Electronically Signed On 01-16-2025 22:18:32 CDT by TERRI RANDOLPH [email or web address]
[2025-01-16 15:33] LABS: Troponin 5 6HR 9.86 ng/L (0-10)
[2025-01-16 15:34] LABS: Troponin 5 6HR Delta -1.14 ng/L (0-12)
[2025-01-16] MEDS: predniSONE 20 mg Tablet 40 MG PO (16:19)
[2025-01-16] MEDS: sodium chloride 0.9% 1,000 ML 75 ML IV (16:19)
[2025-01-16] MEDS: guaiFENesin 600 mg Tablet PO (18:01)
[2025-01-16] MEDS: CELEcoxib 100 mg Capsule PO (18:01)
[2025-01-16] MEDS: oseltamivir phosphate 75 mg Capsule PO (18:01)
[2025-01-16] MEDS: enoxaparin 40 mg/0.4 mL Syringe SUBCUT (18:01)
[2025-01-17] VITALS (8 sets, daily range): BP systolic 116–145; BP diastolic 80–92; PULSE 46–96; RESP 16–18; TEMP 36.4–37.2; O2SAT 90–96
[2025-01-17 03:11] LABS: Bilirubin Urine Negative (Negative); Blood Urine 1+ (Negative); Glucose Urine UA Negative (Normal); Ketones Urine Trace (Negative); Leukocyte Esterase Urine Negative (Negative); Nitrate Urine Negative (Negative); Protein Urine Trace (Negative); Specific Gravity, Urine 1.015 (1.005-1.030); Urine Appearance Clear (CLEAR); Urine Color Yellow (Yellow); Urobilinogen Urine 0.2 mg/dL (Negative); pH Urine 5.5 (5-7)
[2025-01-17 03:16] LABS: Add Urine Microscopic? YES; Bacteria Urine None Seen /hpf; Hyaline Casts Urine 2.87 /lpf; RBC Urine 0-2 /hpf (0-2); Squamous Epithelial Cell Urine 0-5 /hpf (0-5); WBC Urine 0-5 /hpf (0-5)
[2025-01-17] MEDS: levoFLOXacin 750 mg Tablet PO (05:30)
[2025-01-17] MEDS: sodium chloride 0.9% 1,000 ML 75 ML IV (05:30)
[2025-01-17 06:09] LABS: Anion Gap 15.8 (5-19); Blood Urea Nitrogen 15 mg/dL (8-23); Calcium 8.3 mg/dL (8.5-10.5); Carbon Dioxide 24 mmol/L (22-29); Chloride 104 mmol/L (98-107); Creatinine Clr Calc Pharmacy 101.9214; Glucose 91 mg/dL (65-115); Osmolality Calculated 290 mOsm/kg (285-295); Phosphorus 3.3 mg/dL (2.5-4.5); Potassium 3.8 mmol/L (3.5-5.1); Sodium 140 mmol/L (136-145); Thyroid Stimulating Hormone 0.07 uIU/mL (0.27-4.20)
[2025-01-17 06:13] LABS: Chol HDL Ratio 4.67 mg/dL (0.0-4.40); Cholesterol 140 mg/dL (0-200); HDL Cholesterol 30 mg/dL (60-100); LDL Cholesterol Calculated 85 mg/dL (50-129); LDL HDL Ratio 2.83 RATIO (0.00-3.22); Triglycerides 125 mg/dL (0-150)
[2025-01-17 06:19] LABS: Estmated Average Glucose 114; Hemoglobin A1C 5.6 % (4.0-6.0)
[2025-01-17] MEDS: budesonide 0.5 mg/2 mL Neb INHALATION (09:04)
[2025-01-17] MEDS: albuterol 2.5 mg/3 mL Neb INHALATION (09:04)
--- NOTE | 2025-01-17 09:26 | PC.CHAP ---
Pastoral Care Encounter/Spiritual Assessment Type of Contact [] Declined junior web designer visit [] Patient/Family/Request visit [] Outpatient visit [] Follow-up visit [] Physician referral [] Code/Alert [] Routine visit [] Staff referral [] Actively dying [] Patient sleeping [] Family support [] [] Out of room [] Palliative care [] [] Receiving care in room [] Pre-surgical visit [] Trauma [] Long length of stay [] ICU visit [x] Other:Contact precautions. No visit. 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 [] Prayer [] Active listening [] Non-anxious presence [] Spiritual/emotional support [] Crisis/trauma care [] Spiritual counseling [] Bereavement support [] Provided bereavement packet [] Provided Bible/devotional materials [] Provided toy/stuffed animal, coloring book to patient or family member [] Provided Communion [] Anointing/[place] [] Salvation [] Completed spiritual assessment [] Other: Impact on Illness or Injury [] Angry [] Fearful [] Anxious [] Often cries [] Exhaustion [] Unable to work [] Unable to attend orthodoxy [] Unable to walk/stand [] Unable to read [] Unable to drive [] Unable to eat/drink [] Unable to sleep [] Unable to be with family [] Patient intubated [] Other: Summary Time spent with patient
[2025-01-17] MEDS: aspirin 81 mg EC Tablet PO (09:34)
[2025-01-17] MEDS: oseltamivir phosphate 75 mg Capsule PO (09:34)
[2025-01-17] MEDS: guaiFENesin 600 mg Tablet PO (09:34)
[2025-01-17] MEDS: pantoprazole DR 40 mg Tablet PO (09:35)
[2025-01-17] MEDS: amlodipine 5 mg Tablet PO (09:35)
[2025-01-17] MEDS: predniSONE 20 mg Tablet 40 MG PO (09:35)
[2025-01-17] MEDS: CELEcoxib 100 mg Capsule PO (09:35)
--- NOTE | 2025-01-17 11:01 | PM.DCS ---
Discharge Providers Date of Admission: 01/16/25 15:39 Date of Discharge: January 17, 2025 Attending Provider at Admission: Corina Holcomb MD Attending Provider at Discharge: Ayush Gracia MD Primary Care Provider: ANDREW Higgins Diagnoses at Discharge Discharge Diagnosis (1) Hypoxemia requiring supplemental oxygen: Status: Acute (2) Arrhythmia: Status: Acute Qualifiers: Arrhythmia type: other ventricular tachycardia Qualified Code(s): I47.29 - Other ventricular tachycardia Permanent problem details: Nonsustained V. tach noted on ED telemetry monitoring 01/31 (3) Influenza A: Status: Acute (4) COPD (chronic obstructive pulmonary disease): Status: Chronic Qualifiers: COPD type: COPD with acute exacerbation Qualified Code(s): J44.1 - Chronic obstructive pulmonary disease with (acute) exacerbation (5) Essential hypertension: Status: Chronic (6) Kidney disease, chronic, stage II (GFR 60-89 ml/min): Status: Acute (7) Insomnia: Status: Chronic Qualifiers: Insomnia type: due to medical condition Qualified Code(s): G47.01 - Insomnia due to medical condition (8) Degenerative joint disease of right hip: Status: Chronic Qualifiers: Osteoarthritis type: primary Qualified Code(s): M16.11 - Unilateral primary osteoarthritis, right hip (9) Depression: Status: Chronic (10) Tobacco dependence: Status: Chronic (11) BMI 36.0-36.9,adult: Status: Chronic Reason for Visit Reason for Visit: cough,sob,weak Hospital Course Hospital Course Deedee Ralph is a 64-year-old female with past medical history significant for depression, COPD, anxiety, insomnia, tobacco dependence, hypertension, and multiple other comorbidities who presented with shortness of breath and dyspnea associated with cough and weakness, found to have acute influenza A infection resulting in acute COPD exacerbation with acute hypoxic respiratory insufficiency requiring supplemental oxygen support. She was treated with Tamiflu, systemic steroids, breathing treatments, levofloxacin, and supportive care. She has noted to have nonsustained V. tach in the emergency department. Electrolytes were monitored. She was monitored on telemetry. Echo was obtained showing diastolic dysfunction. Her symptomatology improved. She is discharged home in stable condition. She is to continue follow-up with her outpatient providers within 1 week for ongoing care. Physical Exam Narrative: General: Patient is awake. Appears fatigued. Cough present throughout exam. Head: Normocephalic. Atraumatic. EOM intact. Neck: No JVD. Cardiovascular: RRR. No gallops. No murmurs. Lungs: Breath sounds are slightly diminished. End expiratory wheeze present. On supplemental oxygen support. No crackles. No rhonchi. No rales. Skin: No jaundice. No rashes. Abdomen: Normal bowel sounds, abdomen soft and nontender. Extremities: No cyanosis or clubbing. Musculoskeletal:No swollen or erythematous joints. Neurological: Moves all 4 extremities. No myoclonus. Discharge Data Studies Completed and Pending Completed Studies During Hospitalization Category Date Time Status XR chest 1V portable [id number] Stat Exams 01/16/25 09:02 Completed CV. echo complete* [id number] Routine Ultrasound 01/16/25 14:47 Completed Radiology Impressions Chest X-Ray 01/16/25 09:02 IMPRESSION: Mild interstitial prominence. Laboratory Results WBC 11.15 10^3/uL (3.29-11.43) 01/16/25 09:00 RBC 5.37 10^6/uL (3.85-5.65) 01/16/25 09:00 Hgb 15.60 g/dL (11.27-16.99) 01/16/25 09:00 Hct 48.6 % (36-47) H 01/16/25 09:00 MCV 90.5 fl (85-98) 01/16/25 09:00 MCH 29.1 pg (27-33) 01/16/25 09:00 MCHC 32.1 g/dL (30-55) 01/16/25 09:00 RDW 15.0 % (12.1-15.1) 01/16/25 09:00 Plt Count 228 10^3/cmm (157-399) 01/16/25 09:00 MPV 10.3 fL (7.4-10.4) 01/16/25 09:00 Neut % (Auto) 77.1 % 01/16/25 09:00 Lymph % (Auto) 8.4 % 01/16/25 09:00 Morrow % (Auto) 13.7 % 01/16/25 09:00 Eos % (Auto) 0.0 % 01/16/25 09:00 Baso % (Auto) 0.3 % 01/16/25 09:00 Neut # (Auto) 8.59 10^3/uL (1.8-7.7) H 01/16/25 09:00 Lymph # (Auto) 0.9 10^3/uL (0.8-4.8) 01/16/25 09:00 Morrow # (Auto) 1.5 10^3/uL (0.2-0.9) H 01/16/25 09:00 Eos # (Auto) 0.0 10^3/uL (0.0-0.8) 01/16/25 09:00 Baso # (Auto) 0.0 10^3/uL (0.0-0.1) 01/16/25 09:00 Nucleated RBC % (auto) 0 % 01/16/25 09:00 Nucleated RBCs # 0.0 /100WBC 01/16/25 09:00 Specimen Type Arterial 01/16/25 09:02 Sample Site Radial, left 01/16/25 09:02 ABG pH 7.48 (7.35-7.45) H 01/16/25 09:02 ABG pCO2 31.8 mmHg (35-45) L 01/16/25 09:02 ABG pO2 62.4 mmHg (80.0-100.0) L 01/16/25 09:02 ABG PO2/FiO2 Ratio 297 01/16/25 09:02 ABG HCO3 23.6 mmol/L (22-26) 01/16/25 09:02 ABG O2 Saturation 94.7 01/16/25 09:02 ABG Base Excess 1.0 mmol/L (-2.0-2.0) 01/16/25 09:02 Giacomo Test Pos 01/16/25 09:02 A-a O2 Gradient 6.1 mmHg (5-10) 01/16/25 09:02 Hematocrit 47.8 % (37-47) H 01/16/25 09:02 Hgb O2 Saturation 92.3 % (95-100) L 01/16/25 09:02 Carboxyhemoglobin 1.5 %THgb (0.4-20.1) 01/16/25 09:02 Methemoglobin 1.0 % (0.4-1.5) 01/16/25 09:02 Total Hemoglobin 15.6 g/dL (12-16) 01/16/25 09:02 Sodium 136.0 mmol/L (131-143) 01/16/25 09:02 Potassium 3.6 mmol/L (3.5-5.0) 01/16/25 09:02 Glucose 101.0 mg/dL (70-115) 01/16/25 09:02 Ionized Calcium 1.1 mmol/L (1.1-1.4) 01/16/25 09:02 O2 Delivery Device Room air 01/16/25 09:02 FiO2 21.0 % 01/16/25 09:02 Strawberry Grower ID Cak 01/16/25 09:02 Sodium 140 mmol/L (136-145) 01/17/25 04:55 Potassium 3.8 mmol/L (3.5-5.1) 01/17/25 04:55 Chloride 104 mmol/L (98-107) 01/17/25 04:55 Carbon Dioxide 24 mmol/L (22-29) 01/17/25 04:55 Anion Gap 15.8 (5-19) 01/17/25 04:55 BUN 15 mg/dL (8-23) 01/17/25 04:55 Creatinine 0.6 mg/dL (0.5-0.9) 01/17/25 04:55 GFR Calculation 101.0 mL/min (90-130) 01/17/25 04:55 Glucose 91 mg/dL (65-115) 01/17/25 04:55 Estimat Average Glucose 114 01/17/25 04:55 Hemoglobin A1c 5.6 % (4.0-6.0) 01/17/25 04:55 Calculated Osmolality 290 mOsm/kg (285-295) 01/17/25 04:55 Calcium 8.3 mg/dL (8.5-10.5) L 01/17/25 04:55 Phosphorus 3.3 mg/dL (2.5-4.5) 01/17/25 04:55 Magnesium 2.0 mg/dL (1.7-2.3) 01/17/25 04:55 Total Bilirubin 0.3 mg/dL (0.15-1.2) 01/16/25 09:00 AST 23 U/L (0-32) 01/16/25 09:00 ALT 18 U/L (0-33) 01/16/25 09:00 Alkaline Phosphatase 75 U/L (35-105) 01/16/25 09:00 Troponin T Baseline 11 ng/L (0-10) H 01/16/25 09:00 Troponin T 120 Minute 9.51 ng/L (0-10) 01/16/25 10:56 Delta Troponin T -1.49 ABS# (0-10) L 01/16/25 10:56 Troponin T Hi Sens 6Hr 9.86 ng/L (0-10) 01/16/25 15:06 Troponin T Hi Sens 6Hr Delta -1.14 ng/L (0-12) L 01/16/25 15:06 NT-Pro-B Natriuret Pep 370 pg/mL (0-125) H 01/16/25 09:00 Total Protein 7.1 g/dL (6.6-8.7) 01/16/25 09:00 Albumin 4.3 g/dL (3.5-5.2) 01/16/25 09:00 Globulin 2.8 g/dL (1.3-4.6) 01/16/25 09:00 Triglycerides 125 mg/dL (0-150) 01/17/25 04:55 Cholesterol 140 mg/dL (0-200) 01/17/25 04:55 LDL Cholesterol, Calc 85 mg/dL (50-129) 01/17/25 04:55 HDL Cholesterol 30 mg/dL (60-100) L 01/17/25 04:55 LDL/HDL Ratio 2.83 RATIO (0.00-3.22) 01/17/25 04:55 Cholesterol/HDL Ratio 4.67 mg/dL (0.0-4.40) H 01/17/25 04:55 TSH 0.07 uIU/mL (0.27-4.20) L 01/17/25 04:55 Urine Color Yellow (Yellow) 01/17/25 03:00 Urine Appearance Clear (CLEAR) 01/17/25 03:00 Urine pH 5.5 (5-7) 01/17/25 03:00 Ur Specific [place] 1.015 (1.005-1.030) 01/17/25 03:00 Urine Protein Trace (Negative) A 01/17/25 03:00 Urine Glucose (UA) Negative (Normal) 01/17/25 03:00 Urine Ketones Trace (Negative) 01/17/25 03:00 Urine Blood 1+ (Negative) A 01/17/25 03:00 Urine Nitrate Negative (Negative) 01/17/25 03:00 Urine Bilirubin Negative (Negative) 01/17/25 03:00 Urine Urobilinogen 0.2 mg/dL (Negative) 01/17/25 03:00 Ur Leukocyte Esterase Negative (Negative) 01/17/25 03:00 Urine RBC 0-2 /hpf (0-2) 01/17/25 03:00 Urine WBC 0-5 /hpf (0-5) 01/17/25 03:00 Ur Squamous Epith Cells 0-5 /hpf (0-5) 01/17/25 03:00 Amorphous Sediment Not Reportable 01/17/25 03:00 Urine Bacteria None seen /hpf (NONE) 01/17/25 03:00 Hyaline Casts 2.87 /lpf 01/17/25 03:00 Influenza A (PCR) Positive (Negative) 01/16/25 09:00 Influenza Type B (PCR) Negative (Negative) 01/16/25 09:00 RSV (PCR) Negative (Negative) 01/16/25 09:00 SARS-CoV-2 (PCR) Negative (Negative) 01/16/25 09:00 Vitals Last Vital Signs Temp 98.3 F 01/17/25 08:00 Pulse 77 01/17/25 09:23 Resp 17 01/17/25 09:05 BP 116/84 01/17/25 08:00 Pulse Ox 90 01/17/25 10:18 O2 Del Method Nasal Cannula 01/17/25 09:05 O2 Flow Rate 1 01/17/25 09:05 Discharge Plan Discharge Patient Disposition: Home Condition: Stable Prescriptions: New albuterol sulfate 90 mcg/actuation HFA aerosol inhaler 2 inh INHALATION Q4H PRN (Reason: shortness of breath or wheezing) Qty: 18 0RF oseltamivir [Tamiflu] 75 mg capsule 75 mg PO BID 5 Days Qty: 10 0RF prednisone 20 mg Tablet 40 mg PO DAILY 5 Days Qty: 10 0RF levofloxacin 750 mg Tablet 750 mg PO DAILY@0600 7 Days Qty: 7 0RF Continued aspirin 81 mg tablet,delayed release (DR/EC) 81 mg PO BID budesonide-formoterol [Symbicort] 160-4.5 mcg/actuation HFA aerosol inhaler 2 inh inhalation BID 30 Days Qty: 10.2 0RF doxycycline hyclate 100 mg tablet 100 mg PO BID 10 Days Qty: 20 0RF lisinopril 20 mg tablet See Rx Instructions .ROUTE .COMPLEX Qty: 30 5RF Dose Instruction: Take 1 tablet by mouth once daily Rx Instructions: Take 1 tablet by mouth once daily amlodipine 5 mg tablet See Rx Instructions .ROUTE .COMPLEX Qty: 30 5RF Dose Instruction: Take 1 tablet by mouth once daily Rx Instructions: Take 1 tablet by mouth once daily fluoxetine 20 mg capsule See Rx Instructions .ROUTE .COMPLEX Qty: 30 2RF Dose Instruction: Take 1 capsule by mouth once daily Rx Instructions: Take 1 capsule by mouth once daily celecoxib 200 mg capsule See Rx Instructions .ROUTE .COMPLEX Qty: 60 0RF Dose Instruction: TAKE 1 CAPSULE BY MOUTH TWICE DAILY NEEDED FOR PAIN Rx Instructions: TAKE 1 CAPSULE BY MOUTH TWICE DAILY NEEDED FOR PAIN acetaminophen [Tylenol] 325 mg Tablet 650 mg PO QID PRN (Reason: Fever Or Pain) Discharge Orders: Discharge Order (Routine); Ordered 01/17/25 Ordered By: Ayush Gracia Referrals: REMY Mckinnon, DECISION SCIENCE ANALYST [Primary Care Provider] - 4-7 days (We have notified your physician's clinic of the need for a follow-up appointment to be scheduled. If you have not heard from them within the next 2 business days, please call them directly. ) Discharge Diet: Usual diet Discharge Activity: Resume usual activity Patient Instructions: Prednisone (By mouth), Levofloxacin (By mouth) (Levaquin, Levaquin Leva-carline), Oseltamivir (By mouth), Influenza (GEN), Opioid Safety, Pain Management Activity Restrictions/Additional Instructions: Thank you for choosing [facility] for your healthcare needs today. It is very important that you follow up as instructed or that you return to the Emergency Department should you have concerns or if your condition changes or worsens in any way. You were seen for cough cold flu symptoms you did test positive for influenza A. You were also noted to have an irregular rhythm. We reviewed with the investigation division lieutenant he recommends a outpatient stress test and 72-hour Holter monitor and follow-up in their office. Discharge Attestations Time Spent in Discharge Care*: greater than 30 min Quality Metrics Clinical Quality Measures [ No reported AMI, CVA or VTE this stay] Coding Level of Care Code Acute Code for Chg Fwd Diagnoses Hypoxemia requiring supplemental oxygen R09.02; Z99.81 Other ventricular tachycardia I47.29 Arrhythmia type: other ventricular tachycardia Influenza A J10.1 Chronic obstructive pulmonary disease with acute exacerbation J44.1 COPD type: COPD with acute exacerbation Essential hypertension I10 Kidney disease, chronic, stage II (GFR 60-89 ml/min) N18.2 Insomnia due to medical condition G47.01 Insomnia type: due to medical condition Primary osteoarthritis of right hip M16.11 Osteoarthritis type: primary Depression F32.A Tobacco dependence F17.200 BMI 36.0-36.9,adult Z68.36
== END 2025-01-17 12:50 | disposition home or self-care (01) ==
LOC: ER 13:15 → MEDSURG 15:39
PROVIDERS: Admitting Provider Hospitalist; Emergency Provider Family Medicine; PCP Nurse Practitioner Family; Visit Provider Internal Medicine
DX: J10.1 Influenza due to other identified influenza virus with other respiratory manifestations (principal); J44.1 Chronic obstructive pulmonary disease with (acute) exacerbation; R09.02 Hypoxemia; I12.9 Hypertensive chronic kidney disease with stage 1 through stage 4 chronic kidney disease, or unspecified chronic kidney disease; N18.2 Chronic kidney disease, stage 2 (mild); G47.01 Insomnia due to medical condition; I47.29 Other ventricular tachycardia; M16.11 Unilateral primary osteoarthritis, right hip; F17.210 Nicotine dependence, cigarettes, uncomplicated; F32.A Depression, unspecified; Z79.82 Long term (current) use of aspirin; Z88.8 Allergy status to other drugs, medicaments and biological substances; Z11.52 Encounter for screening for COVID-19; Z79.899 Other long term (current) drug therapy; Z90.710 Acquired absence of both cervix and uterus; F41.9 Anxiety disorder, unspecified
CPT/HCPCS: 36415; 36600; 71045; 80048; 80051; 80053; 80061; 81001; 82330; 82805; 83036; 83735; 83880; 84100; 84443; 84484; 85025; 87637; 93005; 93306; 94640; 94760; 96360; 96361; 96372; 99285; G0378; J1650; J7030; J7512; J7613; J7626

== ENCOUNTER → 2025-01-23 15:35 | Outpatient (BNVA) | payer OTHER, SELFPAY | PROVIDERS: PCP Nurse Practitioner Family; Visit Provider Nurse Practitioner Family | DX: D64.9 Anemia, unspecified (principal) | CPT/HCPCS: 80053; 81003; 82607; 82728; 83550; 84443; 85025 ==

== ENCOUNTER → 2025-01-30 16:09 | Outpatient (BNVA) | payer OTHER, SELFPAY | PROVIDERS: PCP Nurse Practitioner Family; Visit Provider Nurse Practitioner Family | DX: M19.90 Unspecified osteoarthritis, unspecified site (principal); J44.1 Chronic obstructive pulmonary disease with (acute) exacerbation; D72.829 Elevated white blood cell count, unspecified; I10 Essential (primary) hypertension | CPT/HCPCS: 83516; 83880; 84439; 84443; 84481; 85025 ==

== ENCOUNTER → 2025-08-02 11:13 | Outpatient (BNVA) | payer OTHER, SELFPAY | PROVIDERS: PCP Nurse Practitioner Family; Visit Provider Nurse Practitioner Family | DX: R31.9 Hematuria, unspecified (principal) | CPT/HCPCS: 81003; 87086 ==